=== PATIENT | female | born 1985 | race Native Hawaiian/Other Pacific Islander ===

== ENCOUNTER 2021-09-16 11:36 | Emergency (ER) | payer BC, OTHER ==
[~2021-09-16] VITALS: Ht 167 cm; Wt 69.0 kg
--- NOTE | 2021-09-16 11:56 | ED GI ---
General Chief Complaint: OB < 20 WEEKS Stated Complaint: VOMITING 13 WKS PREG Source of Information: Patient Exam Limitations: No Limitations History of Present Illness Date Seen by Provider: Sep 16, 2021 Time Seen by Provider: 11:39 Initial Comments The patient presents to the ER by private conveyance with her [id number] with chief complaint of nausea vomiting and poor fluid intake over the past 3 days. She has had no fevers chills cough sore throat abdominal pain diarrhea. She does have constipation. She does not take anything for that. She is a G3, P1 at 13 weeks and 0 days based on LMP of June 17 under the care of Dr. Mack. She has had an uneventful other than nausea and vomiting. She has been using diclegis as well as she went to Dr. Mack's office , 4 days ago and picked up some Zofran. She been using that twice a day. She has not had any this morning. She has had at least 10 episodes of emesis in the last 24 hours. No dysuria. History of cholecystectomy. She has been forcing herself to drink Gatorade. Allergies and Home Medications Allergies Coded Allergies: No Known Drug Allergies (Unverified , 09/16/21) Patient Home Medication List Home Medication List Reviewed: Yes Review of Systems Review of Systems Constitutional: No chills, No fever, No malaise; weakness EENTM: No Blurred Vision, No Double Vision Respiratory: Denies Cough, Denies Shortness of Air Cardiovascular: Denies Chest Pain, Denies Lightheadedness Gastrointestinal: Denies Constipated, Denies Diarrhea; Nausea, Poor Fluid Intake, Vomiting Genitourinary: Denies Burning, Denies Discharge Musculoskeletal: No back pain, No joint pain Psychiatric/Neurological: Denies Anxiety, Denies Depressed All Other Systems Reviewed Negative Unless Noted: Yes Past Hvxstcp-Axbnhk-Vexnuz Hx Patient Social History Tobacco Use?: No Use of E-Cig and/or Vaping dev: No Substance use?: No Alcohol Use?: No Physical Exam Vital Signs Vital Signs - First Documented 09/16/21 11:56 Temp 36.3 Pulse 91 Resp 16 B/P (MAP) 138/95 (109) Pulse Ox 96 O2 Delivery Room Air Capillary Refill : Height/Weight/BMI Height: '" Weight: lbs. oz. kg; BMI Method: General Appearance: WD/WN, mild distress HEENT: PERRL/EOMI, TMs normal; No pharynx normal (Dry oral mucosa) Neck: non-tender, full range of motion, supple, normal inspection Respiratory: lungs clear, normal breath sounds, no respiratory distress, no accessory muscle use Cardiovascular: normal peripheral pulses, regular rate, rhythm, no murmur Gastrointestinal: normal bowel sounds, non tender, soft Extremities: normal range of motion, normal capillary refill Neurologic/Psychiatric: alert, normal mood/affect, oriented x 3 Skin: normal color, warm/dry Progress/Results/Core Measures Results/Orders Lab Results Laboratory Tests Test 09/16/21 11:45 09/16/21 11:50 Range/Units Urine Color YELLOW Urine Clarity CLOUDY Urine pH 8.0 5-9 Urine Specific [place] 1.010 L 1.016-1.022 Urine Protein NEGATIVE NEGATIVE Urine Glucose (UA) NEGATIVE NEGATIVE Urine Ketones NEGATIVE NEGATIVE Urine Nitrite NEGATIVE NEGATIVE Urine Bilirubin NEGATIVE NEGATIVE Urine Urobilinogen 1.0 < = 1.0 MG/DL Urine Leukocyte Esterase NEGATIVE NEGATIVE Urine RBC (Auto) NEGATIVE NEGATIVE Urine RBC NONE /HPF Urine WBC RARE /HPF Urine Squamous Epithelial Cells 5-10 /HPF Urine Crystals NONE /LPF Urine Bacteria NEGATIVE /HPF Urine Casts NONE /LPF Urine Mucus NEGATIVE /LPF Urine Culture Indicated NO White Blood Count 12.2 H 4.3-11.0 10^3/uL Red Blood Count 4.34 3.80-5.11 10^6/uL Hemoglobin 13.3 11.5-16.0 g/dL Hematocrit 40 35-52 % Mean Corpuscular Volume 91 80-99 fL Mean Corpuscular Hemoglobin 31 25-34 pg Mean Corpuscular Hemoglobin Concent 34 32-36 g/dL Red Cell Distribution Width 12.8 10.0-14.5 % Platelet Count 339 130-400 10^3/uL Mean Platelet Volume 9.4 9.0-12.2 fL Immature Granulocyte % (Auto) 0 % Neutrophils (%) (Auto) 75 42-75 % Lymphocytes (%) (Auto) 16 12-44 % Monocytes (%) (Auto) 6 0-12 % Eosinophils (%) (Auto) 3 0-10 % Basophils (%) (Auto) 0 0-10 % Neutrophils # (Auto) 9.1 H 1.8-7.8 10^3/uL Lymphocytes # (Auto) 2.0 1.0-4.0 10^3/uL Monocytes # (Auto) 0.7 0.0-1.0 10^3/uL Eosinophils # (Auto) 0.3 0.0-0.3 10^3/uL Basophils # (Auto) 0.0 0.0-0.1 10^3/uL Immature Granulocyte # (Auto) 0.1 0.0-0.1 10^3/uL Sodium Level 138 135-145 MMOL/L Potassium Level 4.0 3.6-5.0 MMOL/L Chloride Level 105 98-107 MMOL/L Carbon Dioxide Level 21 21-32 MMOL/L Anion Gap 12 5-14 MMOL/L Blood Urea Nitrogen 3 L 7-18 MG/DL Creatinine 0.56 L 0.60-1.30 MG/DL Estimat Glomerular Filtration Rate 123 BUN/Creatinine Ratio 5 Glucose Level 78 70-105 MG/DL Calcium Level 8.8 8.5-10.1 MG/DL C-Reactive Protein High Sensitivity 0.83 H 0.00-0.50 MG/DL My Orders Orders - DONAL RODRIGUEZ Ua Culture If Indicated (09/16/21 11:43) Urine Bedside (09/16/21 11:43) Cbc With Automated Diff (09/16/21 11:56) Basic Metabolic Panel (09/16/21 11:56) Hs C Reactive Protein (09/16/21 11:56) Ondansetron Injection (Zofran Injectio (09/16/21 12:00) Ed Iv/Invasive Line Start (09/16/21 12:03) Lactated Ringers (Lr 1000 Ml Iv Solution (09/16/21 12:15) Medications Given in ED Current Medications Medications Dose Ordered Sig/Michelle Route Start Time Stop Time Status Last Admin Dose Admin Lactated Ringer's 1,000 ml @ 0 mls/hr Q0M ONCE IV 09/16/21 12:15 09/16/21 12:16 DC 09/16/21 12:08 1,000 MLS/HR Ondansetron HCl 4 mg ONCE ONCE IVP 09/16/21 12:00 09/16/21 12:01 DC 09/16/21 12:09 4 MG Vital Signs/I&O 09/16/21 11:56 Temp 36.3 Pulse 91 Resp 16 B/P (MAP) 138/95 (109) Pulse Ox 96 O2 Delivery Room Air Progress Progress Note : Time: 12:22 Progress Note After for Sang her nausea is gone. She feels much better. We we will give her a liter of fluids and allow her to go home. She is okay with this plan. Departure Impression Primary Impression: Nausea/vomiting in Disposition: 01 HOME, SELF-CARE Condition: Stable Departure-Patient Inst. Decision time for Depature: 12:23 Referrals: NO,LOCAL PHYSICIAN (PCP) Primary Care Physician GALINA MACK DO Patient Instructions: Nausea and Vomiting of Add. Discharge Instructions: Continue to push fluids. Take rest. Tylenol 1000 mg every 8 hours as necessary for pain. Benadryl 1 to 2 tablets at night as necessary for sleep or for allergic symptoms. All discharge instructions reviewed with patient and/or family. Voiced understanding. Work/School Note: Work Release Form Date Seen in the Emergency Department: Sep 16, 2021 Return to Work: Sep 18, 2021 Restrictions: No Restrictions Copy Copies To 1: GALINA MACK TITUS J Sep 16, 2021 11:56
[2021-09-16] MEDS ORDERED: ONDANSETRON 4 MG/2 ML (SDV) Z0FRAN IVP ONE (12:00)
[2021-09-16 12:01] LABS: BASOPHILS % (AUTO) 0 % (0-10); EOSINOPHILS # (AUTO) 0.3 10^3/uL (0.0-0.3); EOSINOPHILS % (AUTO) 3 % (0-10); HEMATOCRIT 40 % (35-52); HEMOGLOBIN 13.3 g/dL (11.5-16.0); LYMPHOCYTES % (AUTO) 16 % (12-44); MEAN CORPUSCULAR HEMOGLOBIN 31 pg (25-34); MEAN CORPUSCULAR HGB CONC 34 g/dL (32-36); MEAN CORPUSCULAR VOLUME 91 fL (80-99); MEAN PLATELET VOLUME 9.4 fL (9.0-12.2); MONOCYTES # (AUTO) 0.7 10^3/uL (0.0-1.0); MONOCYTES % (AUTO) 6 % (0-12); NEUTROPHILS # (AUTO) 9.1 10^3/uL (1.8-7.8); NEUTROPHILS % (AUTO) 75 % (42-75); PLATELET COUNT 339 10^3/uL (130-400); WHITE BLOOD COUNT 12.2 10^3/uL (4.3-11.0)
[2021-09-16 12:07] LABS: CALCIUM 8.8 MG/DL (8.5-10.1)
[2021-09-16 12:10] LABS: BILIRUBIN,URINE NEGATIVE (NEGATIVE); CLARITY,URINE CLOUDY; COLOR,URINE YELLOW; GLUCOSE, URINE (UA) NEGATIVE (NEGATIVE); KETONES,URINE NEGATIVE (NEGATIVE); LEUKOCYTE ESTERASE ,URINE NEGATIVE (NEGATIVE); NITRITE,URINE NEGATIVE (NEGATIVE); PROTEIN,URINE NEGATIVE (NEGATIVE)
[2021-09-16 12:11] LABS: CREATININE SERUM 0.56 MG/DL (0.60-1.30)
[2021-09-16] MEDS ORDERED: LACTATED RINGERS 1,000 ML IV ONE (12:15)
[2021-09-16 12:16] LABS: BACTERIA,URINE NEGATIVE /HPF; WBC,URINE RARE /HPF
[2021-09-16 12:51] VITALS: BP 130/84
== END 2021-09-16 12:51 | disposition home or self-care (01) ==
LOC: ER 11:41
DX: O21.0 Mild hyperemesis gravidarum (principal); Z3A.13 13 weeks gestation of pregnancy; Z90.49 Acquired absence of other specified parts of digestive tract
CPT/HCPCS: 36415; 80048; 81000; 84703; 85025; 86141

== ENCOUNTER 2021-11-11 20:47 | Emergency (ER) | payer BC ==
[~2021-11-11] VITALS: Ht 167 cm; Wt 69.0 kg
[2021-11-11] MEDS ORDERED: RT-ALBUTEROL HFA 8.5 GM INHALER IH ONE (21:05)
[2021-11-11] MEDS ORDERED: RX-ALBUTEROL INHALER 8.5 GM HFA (PROAIR) IH STA (21:05)
[2021-11-11 21:16] LABS: BASOPHILS % (AUTO) 0 % (0-10); EOSINOPHILS # (AUTO) 0.1 10^3/uL (0.0-0.3); EOSINOPHILS % (AUTO) 1 % (0-10); HEMATOCRIT 34 % (35-52); HEMOGLOBIN 11.4 g/dL (11.5-16.0); LYMPHOCYTES # (AUTO) 1.7 10^3/uL (1.0-4.0); LYMPHOCYTES % (AUTO) 15 % (12-44); MEAN CORPUSCULAR HEMOGLOBIN 31 pg (25-34); MEAN CORPUSCULAR HGB CONC 33 g/dL (32-36); MEAN CORPUSCULAR VOLUME 92 fL (80-99); MEAN PLATELET VOLUME 9.5 fL (9.0-12.2); MONOCYTES # (AUTO) 0.6 10^3/uL (0.0-1.0); MONOCYTES % (AUTO) 5 % (0-12); NEUTROPHILS % (AUTO) 78 % (42-75); PLATELET COUNT 396 10^3/uL (130-400); WHITE BLOOD COUNT 11.6 10^3/uL (4.3-11.0)
[2021-11-11 21:24] LABS: BILIRUBIN,URINE NEGATIVE (NEGATIVE); CLARITY,URINE CLEAR; COLOR,URINE YELLOW; GLUCOSE, URINE (UA) NEGATIVE (NEGATIVE); KETONES,URINE NEGATIVE (NEGATIVE); LEUKOCYTE ESTERASE ,URINE NEGATIVE (NEGATIVE); NITRITE,URINE NEGATIVE (NEGATIVE); PH,URINE 7.5 (5-9); PROTEIN,URINE NEGATIVE (NEGATIVE)
[2021-11-11 21:26] LABS: ALBUMIN 3.3 GM/DL (3.2-4.5); POTASSIUM 3.6 MMOL/L (3.6-5.0)
[2021-11-11 21:29] LABS: FIBRIN DEGRADATION PRODUCTS 0.73 UG/ML (0.00-0.49); INR 0.9 (0.8-1.4); PROTHROMBIN TIME PATIENT 12.4 SEC (12.2-14.7); TOTAL PROTEIN 6.1 GM/DL (6.4-8.2)
[2021-11-11 21:31] LABS: BILIRUBIN,TOTAL 0.3 MG/DL (0.1-1.0)
[2021-11-11 21:33] LABS: CREATININE SERUM 0.61 MG/DL (0.60-1.30)
[2021-11-11 21:43] LABS: AMORPHOUS SEDIMENT,UR RARE AMOR PHOSPHATE /LPF; BACTERIA,URINE NEGATIVE /HPF
--- NOTE | 2021-11-11 21:51 | ED Cough/URI ---
General Chief Complaint: COVID19 Suspect/Confirmed Stated Complaint: TROUBLE BREATHING;DIZZY;FATIGUE Nursing Triage Note: PT AMB TO ER WITH C/O SOB THAT GOT WORSE TODAY. PT TESTED POSITIVE FOR COVID 19 ON 11/01 History of Present Illness Date Seen by Provider: Nov 11, 2021 Time Seen by Provider: 20:55 Initial Comments 36 year old female, 21 weeks gestation. She is on day 10 of COVID, had more SOA today. She had mild nausea today, improved with Diclegis. She was experience hyperemesis gravidarum early in her but it had improved until she had COVID. She has been increasing her fluid intake. She has her ultrasound and appointment with Dr. Mack tomorrow. She is feeling regular movements of the baby. Timing/Duration: intermittent Severity/Quality: mild, productive cough Prior Episodes/Possible Cause: no prior episodes Associated Symptoms: cough, muscle aches, nasal congestion, shortness of breath Allergies and Home Medications Allergies Coded Allergies: No Known Drug Allergies (Unverified , 09/16/21) Patient Home Medication List Home Medication List Reviewed: Yes Review of Systems Review of Systems Constitutional: see HPI, malaise, weakness EENTM: see HPI, no symptoms reported Respiratory: see HPI, cough, short of breath Cardiovascular: no symptoms reported, see HPI Gastrointestinal: see HPI; No abdominal pain, No diarrhea; nausea; No vomiting Expected Date of Delivery: March 24, 2022 All Other Systems Reviewed Negative Unless Noted: Yes Past Zgjxhuk-Rnyyvt-Evjkys Hx Patient Social History Tobacco Use?: No Substance use?: No Alcohol Use?: No Pt feels they are or have been: No Immunizations Up To Date Influenza Vaccine Up-to-Date: Yes; Up-to-Date Past Medical History Expected Date of Delivery: March 24, 2022 Hx : 2 Hx Para: 1 Hx Total # of Abortions (Sp): 0 Family Medical History Reviewed Nursing Family Hx Physical Exam Vital Signs - First Documented 11/11/21 20:55 Temp 36.5 Pulse 80 Resp 20 B/P (MAP) 116/83 (94) Pulse Ox 99 O2 Delivery Room Air Capillary Refill : Height: '" Weight: lbs. oz. kg; 24.00 BMI Method: General Appearance: WD/WN, no apparent distress HEENT: PERRL/EOMI, normal ENT inspection, TMs normal, pharynx normal Neck: non-tender, full range of motion, supple, normal inspection Respiratory: chest non-tender, lungs clear, normal breath sounds, no respiratory distress Cardiovascular: normal peripheral pulses, regular rate, rhythm, no edema, no murmur Gastrointestinal: normal bowel sounds, non tender, soft, distended (Compatible with 21 weeks gestation) Extremities: normal range of motion, non-tender, normal inspection, no calf tenderness, normal capillary refill Neurologic/Psychiatric: no motor/sensory deficits, alert, normal mood/affect, oriented x 3 Skin: normal color, warm/dry Progress/Results/Core Measures Suspected Sepsis SIRS Temperature: Pulse: 80 Respiratory Rate: 20 Laboratory Tests 11/11/21 21:00: White Blood Count 11.6H Blood Pressure 116 /83 Mean: 94 Laboratory Tests 11/11/21 21:00: Creatinine 0.61, INR Comment 0.9, Platelet Count 396, Total Bilirubin 0.3 Results/Orders Lab Results Laboratory Tests Test 11/11/21 20:54 11/11/21 20:56 11/11/21 21:00 Range/Units Influenza Type A (RT-PCR) Not Detected Not Detecte Influenza Type B (RT-PCR) Not Detected Not Detecte Urine Color YELLOW Urine Clarity CLEAR Urine pH 7.5 5-9 Urine Specific [place] <=1.005 1.016-1.022 Urine Protein NEGATIVE NEGATIVE Urine Glucose (UA) NEGATIVE NEGATIVE Urine Ketones NEGATIVE NEGATIVE Urine Nitrite NEGATIVE NEGATIVE Urine Bilirubin NEGATIVE NEGATIVE Urine Urobilinogen 0.2 < = 1.0 MG/DL Urine Leukocyte Esterase NEGATIVE NEGATIVE Urine RBC (Auto) NEGATIVE NEGATIVE Urine RBC NONE /HPF Urine WBC NONE /HPF Urine Crystals PRESENT H /LPF Urine Amorphous Sediment RARE MARTHA PHOSPHATE H /LPF Urine Bacteria NEGATIVE /HPF Urine Casts NONE /LPF Urine Mucus NEGATIVE /LPF Urine Culture Indicated NO White Blood Count 11.6 H 4.3-11.0 10^3/uL Red Blood Count 3.71 L 3.80-5.11 10^6/uL Hemoglobin 11.4 L 11.5-16.0 g/dL Hematocrit 34 L 35-52 % Mean Corpuscular Volume 92 80-99 fL Mean Corpuscular Hemoglobin 31 25-34 pg Mean Corpuscular Hemoglobin Concent 33 32-36 g/dL Red Cell Distribution Width 13.2 10.0-14.5 % Platelet Count 396 130-400 10^3/uL Mean Platelet Volume 9.5 9.0-12.2 fL Immature Granulocyte % (Auto) 1 % Neutrophils (%) (Auto) 78 H 42-75 % Lymphocytes (%) (Auto) 15 12-44 % Monocytes (%) (Auto) 5 0-12 % Eosinophils (%) (Auto) 1 0-10 % Basophils (%) (Auto) 0 0-10 % Neutrophils # (Auto) 9.0 H 1.8-7.8 10^3/uL Lymphocytes # (Auto) 1.7 1.0-4.0 10^3/uL Monocytes # (Auto) 0.6 0.0-1.0 10^3/uL Eosinophils # (Auto) 0.1 0.0-0.3 10^3/uL Basophils # (Auto) 0.0 0.0-0.1 10^3/uL Immature Granulocyte # (Auto) 0.1 0.0-0.1 10^3/uL Prothrombin Time 12.4 12.2-14.7 SEC INR Comment 0.9 0.8-1.4 Activated Partial Thromboplast Time 29 24-35 SEC D-Dimer 0.73 H 0.00-0.49 UG/ML Sodium Level 138 135-145 MMOL/L Potassium Level 3.6 3.6-5.0 MMOL/L Chloride Level 106 98-107 MMOL/L Carbon Dioxide Level 21 21-32 MMOL/L Anion Gap 11 5-14 MMOL/L Blood Urea Nitrogen 4 L 7-18 MG/DL Creatinine 0.61 0.60-1.30 MG/DL Estimat Glomerular Filtration Rate 119 BUN/Creatinine Ratio 7 Glucose Level 106 H 70-105 MG/DL Calcium Level 9.0 8.5-10.1 MG/DL Corrected Calcium 9.6 8.5-10.1 MG/DL Total Bilirubin 0.3 0.1-1.0 MG/DL Aspartate Amino Transf (AST/SGOT) 16 5-34 U/L Alanine Aminotransferase (ALT/SGPT) 31 0-55 U/L Alkaline Phosphatase 51 40-136 U/L Lactate Dehydrogenase 162 125-220 U/L C-Reactive Protein High Sensitivity 1.19 H 0.00-0.50 MG/DL Total Protein 6.1 L 6.4-8.2 GM/DL Albumin 3.3 3.2-4.5 GM/DL Procalcitonin 0.03 <0.10 NG/ML My Orders Orders - SMITH REZA Cbc With Automated Diff (11/11/21 21:01) Comprehensive Metabolic Panel (11/11/21 21:01) Fibrin Degradation Products (11/11/21 21:01) Procalcitonin (Pct) (11/11/21 21:01) Protime With Inr (11/11/21 21:01) Partial Thromboplastin Time (11/11/21 21:01) Ua Culture If Indicated (11/11/21 21:01) Hs C Reactive Protein (11/11/21 21:01) LDH (11/11/21 21:01) Rx-Albuterol Inhaler (Rx-Ventolin Hfa In (11/11/21 21:05) Covid-19 External Lab Results (11/11/21 21:18) Chest 1 View, Ap/Pa Only (11/11/21 21:48) Influenza A And B By Pcr (11/11/21 20:54) Vital Signs/I&O 11/11/21 20:55 Temp 36.5 Pulse 80 Resp 20 B/P (MAP) 116/83 (94) Pulse Ox 99 O2 Delivery Room Air Capillary Refill : Blood Pressure Mean: 94 Progress Note : Time: 20:55 Progress Note Patient seen and evaluated, will obtain labs and chest x-ray, with shielding for the . ProAir inhaler 2 puffs for shortness of air. She is taking water. 0 improvement after ProAir HFA. Labs show no significant abnormalities. Discussed assessment with Dr. Pelaez and reviewed labs, in agreement with treatment plan 2199 discharge instructions and return precautions reviewed. All questions answered. Diagnostic Imaging Diagonstic Imaging: Xray Plain Films/CT/US/NM/MRI: chest Comments NAME: DYLAN TRAVIS [facility] REC#: [id number] PT STATUS: REG ER : 1985 PHYSICIAN: SMITH REZA ADMIT DATE: 11/11/21/ER Draft Date of Exam:11/11/21 CHEST 1 VIEW, AP/PA ONLY INDICATION: Cough. COMPARISON: None available. TECHNIQUE: Single frontal radiograph of the chest dated November 11, 2021. FINDINGS: The cardiac silhouette and pulmonary vasculature are within normal limits. The lungs are clear. No pleural effusion. No pneumothorax. No acute osseous abnormality. IMPRESSION: No acute cardiopulmonary abnormality. Dictated on workstation # [id number] Dict: 11/11/212225 Trans: 11/11/212227 [facility] [id number] Interpreted by: KALYANI HINSE MD Electronically signed by: Reviewed: Reviewed by Me Departure Impression Primary Impression: COVID-19 Additional Impression: 21 weeks gestation of Disposition: HOME, SELF-CARE Condition: Stable Departure-Patient Inst. Decision time for Depature: 22:00 Referrals: NO,LOCAL PHYSICIAN (PCP) Primary Care Physician GALINA MACK DO Patient Instructions: COVID-19 and (DC) Add. Discharge Instructions: Continue taking your vitamin daily. Increase water intake, 16 ounces every 2 hours while awake. Walk for 5 to 10 minutes every hour while awake and take deep breaths. Call your primary care provider or OB doctor, if your symptoms are not improving or worsen. Use the inhaler, 2 puffs every 4-6 hours, as needed for shortness of breath. Tylenol 650 mg every 6-8 hours, as needed for fever or pain. Return to emergency department for new, urgent healthcare needs. Keep your scheduled appointment tomorrow with Dr. Mack. All discharge instructions reviewed with patient and/or family. Voiced understanding. Copy Copies To 1: GALINA MACK AMY ARNP Nov 11, 2021 21:51
--- NOTE | 2021-11-11 22:28 | Diagnostic Imaging Report ---
INDICATION: Cough. COMPARISON: None available. TECHNIQUE: Single frontal radiograph of the chest dated November 11, 2021. FINDINGS: The cardiac silhouette and pulmonary vasculature are within normal limits. The lungs are clear. No pleural effusion. No pneumothorax. No acute osseous abnormality. IMPRESSION: No acute cardiopulmonary abnormality. Dictated by: Dictated on workstation # [id number]
[2021-11-11 22:34] VITALS: BP 112/72
== END 2021-11-11 22:34 | disposition home or self-care (01) ==
LOC: EDUNIT# 20:47 → ER 20:50
DX: O98.512 Other viral diseases complicating pregnancy, second trimester (principal); U07.1 COVID-19; Z3A.21 21 weeks gestation of pregnancy
CPT/HCPCS: 36415; 71045; 80053; 81000; 83615; 84145; 85025; 85379; 85610; 85730; 86141; 87636

== ENCOUNTER → 2021-11-12 | Outpatient (CLI) | payer BC ==
--- NOTE | 2021-11-12 13:59 | Diagnostic Imaging Report ---
INDICATION: survey. TECHNIQUE: Multiple real-time grayscale images were obtained over the gravid uterus. COMPARISON: None. FINDINGS: There is a single live fetus in a breech presentation. heart rate was recorded at 143 BPM. Placenta is anterior. No previa is identified. Amniotic fluid volume is normal. Cervical length is 5.3 cm. survey demonstrates kidneys, bladder and stomach to be unremarkable. brain is unremarkable. There is a four-chamber heart. There is a three-vessel cord with normal insertion. spine is unremarkable. Biometrical measurements are as follows: Biparietal 5.16 cm, age 21 weeks 5 days. Head circumference 18.99 cm, age 21 weeks 2 days. Abdominal circumference 15.99 cm, age 21 weeks 1 days. Femur length 3.51 cm, age 21 weeks 1 days. Sonographic estimate age: 21 weeks 3 days. Sonographic estimated date of delivery: 03/22/2022. Estimated Weight: 401 gm (+/- 59 gm). LMP percentile: 44%. heart rate: 143 beats per minute. number: 1 of 1. IMPRESSION: Single live IUP at 21 weeks 3 days gestational age. Estimated date of confinement sonographically is 03/22/2022. Dictated by: Dictated on workstation # [id number]
== END ==
LOC: RAD 12:00
PROVIDERS: ATTEND Nurse Practitioner Women's Health
DX: Z34.02 Encounter for supervision of normal first pregnancy, second trimester (principal); Z3A.21 21 weeks gestation of pregnancy
CPT/HCPCS: 76805

== ENCOUNTER 2022-01-28 13:51 | Outpatient (CLI) | payer BC ==
[~2022-01-28] VITALS: Ht 167.7 cm; Wt 82.2 kg
[2022-01-28 13:46] VITALS: BP 122/76
[2022-01-28 14:14] LABS: BILIRUBIN,URINE NEGATIVE (NEGATIVE); CLARITY,URINE CLEAR; COLOR,URINE YELLOW; GLUCOSE, URINE (UA) NEGATIVE (NEGATIVE); KETONES,URINE NEGATIVE (NEGATIVE); LEUKOCYTE ESTERASE ,URINE NEGATIVE (NEGATIVE); NITRITE,URINE NEGATIVE (NEGATIVE); PH,URINE 6.5 (5-9); PROTEIN,URINE NEGATIVE (NEGATIVE)
[2022-01-28 14:28] LABS: BACTERIA,URINE NEGATIVE /HPF; SQUAMOUS EPITHELIAL CELL,UR 0-2 /HPF
[2022-01-28] MEDS ORDERED: PREN-8 PO (14:40)
[2022-01-28] MEDS ORDERED: FAMO20TA3 PO (14:40)
--- NOTE | 2022-01-29 08:41 | Physician Query-Final Dx ---
COMFORT,01/29/22 0841: Clinic Account Progress/Dx Physician Query: Please give diagnosis Please include # weeks gestation Date of Service Jan 28, 2022 at 13:51 EUGENE DE LOS SANTOS DO 01/30/22 0703: Clinic Account Progress/Dx DIAGNOSIS: Diagnosis 32 week IUP Irregular contractions COMFORT,OctJan 29, 2022 08:41 EUGENE DE LOS SANTOS DO Jan 30, 2022 07:03
== END 2022-01-28 14:54 | disposition home or self-care (01) ==
LOC: WSo 13:51 → LDRP 13:51 → WSo 14:54
PROVIDERS: ATTEND Obstetrics & Gynecology
DX: Z34.90 Encounter for supervision of normal pregnancy, unspecified, unspecified trimester (principal); Z3A.00 Weeks of gestation of pregnancy not specified
CPT/HCPCS: 81000; 84112; 99213

== ENCOUNTER → 2022-02-27 | Outpatient (CLI) | payer BC ==
[~2022-02-27] MED LIST: FAMO20TA3 PO; PREN-8 PO
== END ==
LOC: LABNPT 15:22
PROVIDERS: ATTEND Obstetrics & Gynecology
DX: Z36.85 Encounter for antenatal screening for Streptococcus B (principal)
CPT/HCPCS: 87081

== ENCOUNTER 2022-03-03 14:01 | Outpatient (CLI) | payer BC ==
[~2022-03-03] VITALS: Ht 167.7 cm; Wt 87.5 kg
[2022-03-03 14:31] VITALS: BP 129/84
[2022-03-03 14:43] LABS: BILIRUBIN,URINE NEGATIVE (NEGATIVE); CLARITY,URINE CLEAR; COLOR,URINE YELLOW; GLUCOSE, URINE (UA) NEGATIVE (NEGATIVE); KETONES,URINE NEGATIVE (NEGATIVE); LEUKOCYTE ESTERASE ,URINE NEGATIVE (NEGATIVE); NITRITE,URINE NEGATIVE (NEGATIVE); PH,URINE 6.5 (5-9); PROTEIN,URINE NEGATIVE (NEGATIVE)
[2022-03-03 14:52] LABS: BACTERIA,URINE TRACE /HPF
--- NOTE | 2022-03-04 08:33 | Physician Query-Final Dx ---
Clinic Account Progress/Dx Physician Query: Please give diagnosis Please include # weeks gestation Date of Service March 03, 2022 at 14:01 ,OctMarch 04, 2022 08:33
== END 2022-03-03 15:55 ==
LOC: LDRP 14:01 → WSo 14:01
PROVIDERS: ATTEND Obstetrics & Gynecology
DX: O62.9 Abnormality of forces of labor, unspecified (principal); Z3A.37 37 weeks gestation of pregnancy
CPT/HCPCS: 81000; 99213

== ENCOUNTER 2022-03-05 12:48 | Inpatient (IN) | payer BC ==
[~2022-03-05] VITALS: Ht 167.7 cm; Wt 88.6 kg
[2022-03-05] VITALS (9 sets, daily range): BP systolic 122–155; BP diastolic 78–103
[2022-03-05 14:05] LABS: BILIRUBIN,URINE NEGATIVE (NEGATIVE); CLARITY,URINE CLEAR; COLOR,URINE YELLOW; GLUCOSE, URINE (UA) TRACE (NEGATIVE); KETONES,URINE NEGATIVE (NEGATIVE); LEUKOCYTE ESTERASE ,URINE NEGATIVE (NEGATIVE); NITRITE,URINE NEGATIVE (NEGATIVE); PH,URINE 6.5 (5-9); PROTEIN,URINE NEGATIVE (NEGATIVE)
[2022-03-05 14:16] LABS: BACTERIA,URINE NEGATIVE /HPF
[2022-03-05] MEDS ORDERED: D5 LR IV SOLUTION 1,000 ML IV ONE (17:56)
[2022-03-05] MEDS: D5 LR IV SOLUTION 1,000 ML IV SCH ×2 (18:10→22:10)
[2022-03-05 18:23] LABS: BASOPHILS # (AUTO) 0.1 10^3/uL (0.0-0.1); BASOPHILS % (AUTO) 0 % (0-10); EOSINOPHILS # (AUTO) 0.5 10^3/uL (0.0-0.3); EOSINOPHILS % (AUTO) 3 % (0-10); HEMATOCRIT 32 % (35-52); HEMOGLOBIN 10.1 g/dL (11.5-16.0); LYMPHOCYTES # (AUTO) 1.9 10^3/uL (1.0-4.0); LYMPHOCYTES % (AUTO) 12 % (12-44); MEAN CORPUSCULAR HEMOGLOBIN 28 pg (25-34); MEAN CORPUSCULAR HGB CONC 32 g/dL (32-36); MEAN CORPUSCULAR VOLUME 89 fL (80-99); MEAN PLATELET VOLUME 9.6 fL (9.0-12.2); MONOCYTES % (AUTO) 7 % (0-12); NEUTROPHILS # (AUTO) 11.6 10^3/uL (1.8-7.8); NEUTROPHILS % (AUTO) 77 % (42-75); PLATELET COUNT 335 10^3/uL (130-400); WHITE BLOOD COUNT 15.2 10^3/uL (4.3-11.0)
[2022-03-05 18:57] LABS: EOSINOPHILS % (MANUAL) 2 %; LYMPHOCYTES % (MANUAL) 12 %; MONOCYTES % (MANUAL) 3 %; NEUTROPHILS % (MANUAL) 83 %; RBC MORPH NORMAL
[2022-03-05] MEDS ORDERED: ACETAMINOPHEN 500 MG TAB (TYLENOL) PO PRN (19:00)
[2022-03-05] MEDS ORDERED: CALCIUM CARBONATE 500 MG (TUMS) TAB.CHEW PO PRN (19:00)
[2022-03-05 19:35] LABS: URINE CREATININE FOR RATIO 33 MG/DL (30-125)
[2022-03-05 19:36] LABS: URINE PROTEIN FOR RATIO ONLY < 6 MG/DL (6-12)
[2022-03-05] MEDS ORDERED: diphenhydrAMINE 25 MG TAB (BENADRYL) PO ONE ×2 (21:00→21:04)
[2022-03-06] VITALS (55 sets, daily range): BP systolic 100–150; BP diastolic 54–99
[2022-03-06] MEDS: D5 LR IV SOLUTION 1,000 ML IV SCH ×2 (02:29→08:24)
--- NOTE | 2022-03-06 08:29 | History & Physical ---
History and Physical Date Seen by Provider: March 06, 2022 Time Seen by Provider: 07:30 This patient is a 37-year-old 1 female admitted at 39+ weeks gestation for induction of labor. Her has been uncomplicated however her GBS culture was positive. She denies rupture membranes or bleeding she has had no problems with this Allergies are none Medications are vitamins Medical social and surgical history is all per the antepartum record HEENT exam is normal Neck is supple with no lymphadenopathy no thyromegaly Abdomen is gravid soft nontender nondistended Extremities show no clubbing cyanosis. There is no Homans' sign. Pelvic exam shows a cervix 1 to 2 cm dilated 50 to 60% effaced -1 station soft mid to slightly anterior with a vertex presentation Amniotomy is performed with clear fluid Laboratory Tests Test 03/05/22 13:00 03/05/22 18:10 Range/Units Urine Color YELLOW Urine Clarity CLEAR Urine pH 6.5 5-9 Urine Specific [place] <=1.005 1.016-1.022 Urine Protein < 6 L 6-12 MG/DL Urine Glucose (UA) TRACE H NEGATIVE Urine Ketones NEGATIVE NEGATIVE Urine Nitrite NEGATIVE NEGATIVE Urine Bilirubin NEGATIVE NEGATIVE Urine Urobilinogen 0.2 < = 1.0 MG/DL Urine Leukocyte Esterase NEGATIVE NEGATIVE Urine RBC (Auto) 3+ H NEGATIVE Urine RBC 10-25 H /HPF Urine WBC NONE /HPF Urine Squamous Epithelial Cells 2-5 /HPF Urine Crystals NONE /LPF Urine Bacteria NEGATIVE /HPF Urine Casts NONE /LPF Urine Mucus NEGATIVE /LPF Urine Culture Indicated NO Urine Creatinine 33 30-125 MG/DL Urine Protein/Creatinine Ratio White Blood Count 15.2 H 4.3-11.0 10^3/uL Red Blood Count 3.56 L 3.80-5.11 10^6/uL Hemoglobin 10.1 L 11.5-16.0 g/dL Hematocrit 32 L 35-52 % Mean Corpuscular Volume 89 80-99 fL Mean Corpuscular Hemoglobin 28 25-34 pg Mean Corpuscular Hemoglobin Concent 32 32-36 g/dL Red Cell Distribution Width 14.6 H 10.0-14.5 % Platelet Count 335 130-400 10^3/uL Mean Platelet Volume 9.6 9.0-12.2 fL Immature Granulocyte % (Auto) 1 % Neutrophils (%) (Auto) 77 H 42-75 % Lymphocytes (%) (Auto) 12 12-44 % Monocytes (%) (Auto) 7 0-12 % Eosinophils (%) (Auto) 3 0-10 % Basophils (%) (Auto) 0 0-10 % Neutrophils # (Auto) 11.6 H 1.8-7.8 10^3/uL Lymphocytes # (Auto) 1.9 1.0-4.0 10^3/uL Monocytes # (Auto) 1.0 0.0-1.0 10^3/uL Eosinophils # (Auto) 0.5 H 0.0-0.3 10^3/uL Basophils # (Auto) 0.1 0.0-0.1 10^3/uL Immature Granulocyte # (Auto) 0.1 0.0-0.1 10^3/uL Neutrophils % (Manual) 83 % Lymphocytes % (Manual) 12 % Monocytes % (Manual) 3 % Eosinophils % (Manual) 2 % Blood Morphology Comment NORMAL Assessment and plan 39+ week with a positive GBS culture. Patient is admitted now for an elective induction of labor under the protection of ampicillin for GBS. We anticipate a vaginal delivery. 39 weeks admitted for induction of labor Allergies and Home Medications Allergies Coded Allergies: No Known Drug Allergies (Unverified , 09/16/21) Patient Home Medication List Home Medication List Reviewed: Yes Famotidine (Acid Curator Of Collections (FAMOTIDINE)) 20 Mg Tablet, 20 MG PO BID, (Reported) Entered as Reported by: ARPIT BRICEÑO on 01/28/221439 Vit W-Ca,Fe,FA(<1 mg) ( Formula) 1 Each Tablet, 1 EACH PO, (Reported) Entered as Reported by: ARPIT BRICEÑO on 01/28/221439 KOFI SESAY MD March 06, 2022 8:29 am
[2022-03-06] MEDS ORDERED: OXYTOCIN PRE-MIX DRIP 500 ML IV SCH ×3 (08:30→15:00)
[2022-03-06] MEDS ORDERED: D5 LR IV SOLUTION 1,000 ML IV SCH ×2 (08:30→08:45)
[2022-03-06] MEDS ORDERED: AMPICILLIN FOR IV USE 2,000 MG in WATER (STERILE) FOR INJECTION 14.8 ML IV ONE (08:30)
[2022-03-06] MEDS ORDERED: LIDOCAINE/EPI 2% 1:200,00 (XYLOCAINE) 20 ML VIAL INJ PRN (08:45)
[2022-03-06] MEDS ORDERED: fentaNYL 2 mcg/ml BUPIVA 0.125 100 ML ONE (08:50)
[2022-03-06] MEDS ORDERED: LACTATED RINGERS 1,000 ML IV ONE (08:51)
[2022-03-06] MEDS ORDERED: DOXY25TA56 PO (09:18)
[2022-03-06] MEDS ORDERED: BUPIVACAINE 0.25% 10 ML (SENSORCAINE) VIAL ONE (09:49)
[2022-03-06] MEDS ORDERED: fentaNYL INJ 100 MCG/2 ML AMP ONE (09:49)
[2022-03-06] MEDS ORDERED: ONDANSETRON 4 MG/2 ML (SDV) Z0FRAN ONE (10:14)
[2022-03-06] MEDS: ONDANSETRON 4 MG/2 ML (SDV) Z0FRAN IV PRN ×2 (10:17→15:56)
[2022-03-06] MEDS ORDERED: diphenhydrAMINE 50 MG/ML INJ (BENADRYL) IV PRN (10:45)
[2022-03-06] MEDS ORDERED: EPIDURAL (fentaNYL 2 MCG/ML BUPIVA 0.125%)100 ML BAG EPI PRN (10:45)
[2022-03-06] MEDS ORDERED: NALOXONE 0.4 MG/ML 1 ML (NARCAN) VIAL IV PRN ×3 (10:45→15:00)
[2022-03-06] MEDS ORDERED: LACTATED RINGERS 1,000 ML IV SCH (10:45)
[2022-03-06] MEDS ORDERED: AMPICILLIN FOR IV USE 1,000 MG in WATER (STERILE) FOR INJECTION 7.4 ML IV SCH (12:30)
[2022-03-06] MEDS ORDERED: LIDOCAINE/EPI 2% 1:200,00 (XYLOCAINE) 10 ML VIAL ONE (13:59)
[2022-03-06] MEDS ORDERED: CATHETER FLUSH 10 ML SYR IV SCH ×2 (14:00→22:00)
--- NOTE | 2022-03-06 14:50 | OB Labor & Delivery Record ---
L&D History Date of Service Date of Service: March 06, 2022 History Expected Date of Delivery: March 24, 2022 Gestational Age in Weeks: 37 Hx : 3 Hx Para: 1 Complications Events: Routine care Operative Indications (Cesarea: N/A-Vaginal Delivery Intrapartal Events: None L&D Stage1 Stage One Onset of Labor - Date: March 06, 2022 Monitors and Tracing Monitor Mode: External Heart Rate: 135 Monitor Accelerations: Uniform Monitor Decelerations: None Station: -2 Intermediate Variability: Average (6-10) Short Term Variability: Present Presentation: Vertex Vital Signs VS - Last 72 Hours, by Label 03/05/22 03/05/22 03/05/22 03/05/22 13:26 18:15 18:45 19:05 Temp 37.0 Pulse 106 96 96 Resp 20 18 B/P (MAP) 145/103 (117) 155/87 (109) 139/99 (112) Pulse Ox 99 O2 Delivery Room Air 03/05/22 03/05/22 03/05/22 03/05/22 19:10 19:20 20:10 22:10 Temp 37.0 36.6 Pulse 97 93 92 83 Resp 18 18 18 16 B/P (MAP) 143/88 (106) 139/90 (106) 122/78 (93) 132/80 (97) O2 Delivery Room Air Room Air Room Air Room Air 03/05/22 03/06/22 03/06/22 03/06/22 23:10 00:10 01:20 02:20 Temp 36.8 Pulse 84 88 86 78 Resp 18 18 16 16 B/P (MAP) 137/81 (99) 141/87 (105) 118/73 (88) 141/86 (104) O2 Delivery Room Air Room Air Room Air Room Air 03/06/22 03/06/22 03/06/22 03/06/22 03:20 04:20 05:20 06:36 Temp 36.8 Pulse 91 83 85 92 Resp 16 16 16 18 B/P (MAP) 140/99 (113) 142/83 (102) 124/80 (95) 146/96 (113) O2 Delivery Room Air Room Air Room Air Room Air 03/06/22 03/06/22 03/06/22 03/06/22 07:17 07:40 08:16 09:00 Temp 37.2 Pulse 93 96 93 88 Resp 18 18 18 18 B/P (MAP) 124/78 (93) 134/92 (106) 134/90 (105) 140/93 (109) O2 Delivery Room Air Room Air Room Air Room Air 03/06/22 03/06/22 03/06/22 03/06/22 09:15 09:30 09:45 09:57 Pulse 82 83 82 84 Resp 18 18 18 18 B/P (MAP) 123/69 (87) 133/93 (106) 132/92 (105) 150/96 (114) Pulse Ox 97 O2 Delivery Room Air Room Air Room Air Room Air 03/06/22 03/06/22 03/06/22 03/06/22 10:01 10:07 10:12 10:15 Pulse 85 92 78 64 Resp 18 18 18 18 B/P (MAP) 135/84 (101) 138/67 (90) 125/59 (81) 100/54 (69) Pulse Ox 96 97 97 O2 Delivery Room Air Room Air Room Air Room Air 03/06/22 03/06/22 03/06/22 03/06/22 10:16 10:17 10:20 10:21 Pulse 68 69 69 93 Resp 18 18 18 18 B/P (MAP) 100/59 (73) 108/60 (76) 117/71 (86) 126/72 (90) Pulse Ox 93 O2 Delivery Room Air Room Air Room Air Room Air 03/06/22 03/06/22 03/06/22 03/06/22 10:26 10:31 10:37 10:56 Pulse 100 114 91 85 Resp 18 18 18 18 B/P (MAP) 124/69 (87) 115/62 (79) 116/62 (80) 121/74 (90) Pulse Ox 96 95 95 92 O2 Delivery Room Air Room Air Room Air Room Air 03/06/22 03/06/22 11:11 11:26 Pulse 92 100 Resp 18 18 B/P (MAP) 114/72 (86) 138/82 (100) Pulse Ox 99 97 O2 Delivery Room Air Room Air Rupture of Membranes Spontaneous Ruture of Membrane: No Amniotic Membrane Rupture Time: 0830 Amniotic Membrane Fluid Desc.: Clear Vaginal Bleeding Description: Normal Show Induction/Anesthesia Epidural Cath Placement - Time: 1000 Progress/Notes Patient admitted for early labor, advanced cervical dilatation. She had AROM performed this AM. Augmented with pitocin and progressed to complete and + 3 station, with epidural in place. L&D Stage2 Stage Two Stage II Date: March 06, 2022 Monitors and Tracing Monitor Mode: External Heart Rate: 135 Monitor Accelerations: Uniform Monitor Decelerations: None Fitting Room Associate Variability: Average (6-10) Short Term Variability: Present Position: Right Occiput Anterior Presentation: Vertex Cord Descript/Complications Cord Vessel Description: 3 Vessels Complications tight nuchal cord delivered through. Delivery Type Delivery Method: Spontaneous Vaginal Anterior Shoulder: Right Episiotomy/Perineal Laceration Laceraction(s)/Extensions: Yes Episiotomy Description: Midline, Perineal Extension/lac, 1st degree Degree (describe repair) laceration repaired using 3-0 rapide vicryl suture in usual fashion. Condition of Infant Delivery 1 minute Comment: 8 5 minute Comment: 9 Notes Live male infant weight 7lbs 1 oz Condition of Condition of : Living Exam: No Observed Abnormalities Resuscitation Resuscitation: N/A - Spontaneous Resp L&D Stage3 Stage Three Stage III Date: March 06, 2022 Pictocin Pitocin Administration mu/min: 4 Pitocin ml/hr: 4 Pitocin Administration Comment: 30 mu wide open after delivery of placenta Placenta Delivery Placenta Delivery: Spontaneous Delivery Summary Summary Estimated blood loss (mL): 250 Attending at delivery: Eugene De Los Santos DO Condition of Delivery Examined: Cervix Examined, Uterus Explored Post Hemorrhage: No Condition of Mother stable Condition of (s) stable EUGENE DE LOS SANTOS DO March 06, 2022 14:50
[2022-03-06] MEDS ORDERED: METHYLERGONOVINE 0.2 MG/ML (METHERGINE) AMP ONE (14:56)
[2022-03-06] MEDS ORDERED: DIBUCAINE 1% OINTMENT 30 GM TUBE TOP PRN (15:00)
[2022-03-06] MEDS ORDERED: MEASLES,MUMPS,RUBELLA 1 EA INJ SQ ONE (15:00)
[2022-03-06] MEDS ORDERED: TETANUS,DIPTH,PERTUSS P/F (BOOSTRIX) 0.5 ML VIAL IM ONE (15:00)
[2022-03-06] MEDS ORDERED: BENZOCAINE/MENTHOL (DERMOPLAST) 56 ML CAN TP PRN (15:00)
[2022-03-06] MEDS ORDERED: WITCH HAZEL(TUCKS) 40 EA JAR TOP PRN (15:00)
[2022-03-06] MEDS: METOCLOPRAMIDE INJ 10 MG/2 ML (REGLAN) IV PRN ×2 (16:20→19:47)
[2022-03-06] MEDS: IBUPROFEN 600 MG (MOTRIN) TAB PO SCH (20:39)
[2022-03-06] MEDS: DOCUSATE SODIUM 100 MG (COLACE) CAP PO SCH (21:45)
[2022-03-06] MEDS: HYDROcodone/APAP 5 MG/325 MG (LORTAB) TAB PO PRN (21:46)
[2022-03-07] MEDS: IBUPROFEN 600 MG (MOTRIN) TAB PO SCH ×4 (02:11→20:48)
[2022-03-07 04:00] VITALS: BP 120/68
[2022-03-07] MEDS: HYDROcodone/APAP 5 MG/325 MG (LORTAB) TAB PO PRN ×3 (05:36→17:50)
[2022-03-07 05:46] LABS: BASOPHILS # (AUTO) 0.1 10^3/uL (0.0-0.1); BASOPHILS % (AUTO) 0 % (0-10); EOSINOPHILS # (AUTO) 0.5 10^3/uL (0.0-0.3); EOSINOPHILS % (AUTO) 3 % (0-10); HEMATOCRIT 27 % (35-52); HEMOGLOBIN 8.7 g/dL (11.5-16.0); LYMPHOCYTES % (AUTO) 13 % (12-44); MEAN CORPUSCULAR HEMOGLOBIN 29 pg (25-34); MEAN CORPUSCULAR HGB CONC 32 g/dL (32-36); MEAN CORPUSCULAR VOLUME 90 fL (80-99); MEAN PLATELET VOLUME 9.6 fL (9.0-12.2); MONOCYTES # (AUTO) 1.3 10^3/uL (0.0-1.0); MONOCYTES % (AUTO) 9 % (0-12); NEUTROPHILS # (AUTO) 11.5 10^3/uL (1.8-7.8); NEUTROPHILS % (AUTO) 74 % (42-75); PLATELET COUNT 261 10^3/uL (130-400); WHITE BLOOD COUNT 15.4 10^3/uL (4.3-11.0)
[2022-03-07] MEDS ORDERED: ONDANSETRON 4 MG (ZOFRAN) ORAL DISSOLVE TAB ONE (07:58)
[2022-03-07] MEDS ORDERED: ONDANSETRON 4 MG (ZOFRAN) ORAL DISSOLVE TAB PO PRN (08:00)
--- NOTE | 2022-03-07 08:38 | Discharge Inst-Women's Service ---
Discharge Inst-Women's Serv Depart Medication/Instructions New, Converted or Re-Newed RX: Transmitted to Pharmacy Final Diagnosis PPD 1 NVD Problems Reviewed?: Yes Consults/Follow Up Additional Follow Up: Yes Orders/Referrals Dr. De Los Santos in 6 weeks Activity Activity: Activity as Tolerated Driving Instructions: No Driving for 1 Week NO SMOKING: NO SMOKING Nothing Inside Vagina: No Douching, No [employer], No Tampons Diet Discharge Diet: No Restrictions Symptoms to Report to : Bleeding Excessive, Pain Increased, Fever Over 101 Degrees F, Vaginal Bleeding Increase, Questions/Concerns For Any Problems or Questions: Contact Your Physician Skin/Wound Care Infection Signs and Symptoms: Increased Redness, Foul Odor of Wound, Increased Drainage, Skin Itchy or Has a Rash, Increased Swelling, Temperature Above 101 F Operative Area Clean and Dry: Keep Incision Clean/Dry EUGENE DE LOS SANTOS DO March 07, 2022 08:38
[2022-03-07] MEDS ORDERED: BENZ78AE5 TP (08:39)
[2022-03-07] MEDS ORDERED: IBUP-844 PO (08:39)
[2022-03-07] MEDS ORDERED: FERR325T24 PO (08:39)
[2022-03-07] MEDS ORDERED: DOCU100C37 PO (08:39)
[2022-03-07] MEDS ORDERED: ACHD5005 PO (08:39)
[2022-03-07] MEDS ORDERED: DIBU30OI TOP (08:39)
[2022-03-07] MEDS: DOCUSATE SODIUM 100 MG (COLACE) CAP PO SCH ×2 (08:41→20:48)
[2022-03-07] MEDS: FERROUS SULF 325 MG (IRON) TAB PO SCH (08:41)
[2022-03-07] MEDS: PRENATAL VITAMIN 1 EA TAB PO SCH (08:41)
--- NOTE | 2022-03-07 08:41 | Postpartum Progress Note ---
Note Note Day # 1 Subjective: Patient is without complaints. Ambulating, voiding. Tolerating a regular diet without nausea or vomiting. Normal lochia. Pain is well controlled with oral pain medications. Objective: Physical Exam: General - Alert and oriented, no apparent distress Abdomen - Soft, appropriately tender to palpation, non-distended, fundus firm at umbilicus Extremities - no edema, negative Noy's bilaterally Assessment: PPD 1 NVD Acute blood loss anema Plan: Routine care. Replace iron Encourage breast feeding. Encourage ambulation. Ferrous sulfate supplementation. Plan for discharge today Vitals - Labs Vital Signs - I&O Vital Signs Date Time Temp Pulse Resp B/P (MAP) Pulse Ox O2 Delivery O2 Flow Rate FiO2 03/07/22 04:00 36.3 77 18 120/68 (85) 98 Room Air 03/06/22 23:05 36.6 88 18 125/82 (96) 98 Room Air 03/06/22 20:00 37.1 105 18 144/91 (108) 98 Room Air 03/06/22 17:11 36.8 107 18 143/65 (91) 95 Room Air 03/06/22 16:55 81 18 140/79 (99) 94 Room Air 03/06/22 16:40 81 18 138/81 (100) 95 Room Air 03/06/22 16:25 76 18 143/80 (101) 99 Room Air 03/06/22 16:15 88 18 140/84 (102) 98 Room Air 03/06/22 15:58 36.3 90 18 138/87 (104) Room Air 03/06/22 15:40 77 18 137/81 (99) Room Air 03/06/22 15:31 36.0 86 18 136/89 (105) Room Air 03/06/22 15:14 132/79 (96) 03/06/22 15:10 36.0 90 18 127/74 (91) Room Air 03/06/22 15:00 36.1 03/06/22 14:55 90 18 131/73 (92) Room Air 03/06/22 14:41 94 18 121/62 (81) Room Air 03/06/22 14:27 93 18 129/81 (97) Room Air 03/06/22 14:11 97 18 125/83 (97) Room Air 03/06/22 13:56 36.2 87 18 127/84 (98) Room Air 03/06/22 13:42 80 18 133/80 (97) Room Air 03/06/22 13:27 84 18 132/78 (96) Room Air 03/06/22 13:22 35.5 03/06/22 13:10 96 18 135/72 (93) Room Air 03/06/22 12:58 94 18 133/76 (95) 97 Room Air 03/06/22 12:41 95 18 104/64 (77) 97 Room Air 03/06/22 12:26 91 18 114/66 (82) 99 Room Air 03/06/22 12:11 89 18 110/57 (74) 98 Room Air 03/06/22 11:56 85 18 116/61 (79) 96 Room Air 03/06/22 11:50 36.1 03/06/22 11:40 82 18 127/62 (83) 99 Room Air 03/06/22 11:26 100 18 138/82 (100) 97 Room Air 03/06/22 11:11 92 18 114/72 (86) 99 Room Air 03/06/22 10:56 85 18 121/74 (90) 92 Room Air 03/06/22 10:37 91 18 116/62 (80) 95 Room Air 03/06/22 10:31 114 18 115/62 (79) 95 Room Air 03/06/22 10:26 100 18 124/69 (87) 96 Room Air 03/06/22 10:21 93 18 126/72 (90) 93 Room Air 03/06/22 10:20 69 18 117/71 (86) Room Air 03/06/22 10:17 69 18 108/60 (76) Room Air 03/06/22 10:16 68 18 100/59 (73) Room Air 03/06/22 10:15 64 18 100/54 (69) Room Air 03/06/22 10:12 78 18 125/59 (81) 97 Room Air 03/06/22 10:07 92 18 138/67 (90) 97 Room Air 03/06/22 10:01 85 18 135/84 (101) 96 Room Air 03/06/22 09:57 84 18 150/96 (114) 97 Room Air 03/06/22 09:45 82 18 132/92 (105) Room Air 03/06/22 09:30 83 18 133/93 (106) Room Air 03/06/22 09:15 82 18 123/69 (87) Room Air 03/06/22 09:00 88 18 140/93 (109) Room Air I & O 03/07/22 06:59 Intake Total 3000 ml Balance 3000 ml Labs Laboratory Tests 03/07/22 05:30: White Blood Count 15.4H, Red Blood Count 3.00L, Hemoglobin 8.7L, Hematocrit 27L, Mean Corpuscular Volume 90, Mean Corpuscular Hemoglobin 29, Mean Corpuscular Hemoglobin Concent 32, Red Cell Distribution Width 14.6H, Platelet Count 261, Mean Platelet Volume 9.6, Immature Granulocyte % (Auto) 1, Neutrophils (%) (Auto) 74, Lymphocytes (%) (Auto) 13, Monocytes (%) (Auto) 9, Eosinophils (%) (Auto) 3, Basophils (%) (Auto) 0, Neutrophils # (Auto) 11.5H, Lymphocytes # (Auto) 2.0, Monocytes # (Auto) 1.3H, Eosinophils # (Auto) 0.5H, Basophils # (Auto) 0.1, Immature Granulocyte # (Auto) 0.1 EUGENE DE LOS SANTOS DO March 07, 2022 08:41
[2022-03-07 08:43] VITALS: BP 149/95
[2022-03-07 10:10] VITALS: BP 146/79
[2022-03-07] MEDS ORDERED: PROMETHAZINE INJ 25 MG/ML (PHENERGAN) AMP IM ONE (11:30)
--- NOTE | 2022-03-07 12:19 | History & Physical-OB ---
OB - Chief Complaint & HPI Date/Time Date of Admission: Date of Admission: March 06, 2022 at 8:38 am Date seen by a Provider: March 06, 2022 Time Seen by a Provider: 07:45 Chief Complaint/History OB-Reason for Admission/Chief: Onset of Labor Hx : 3 Hx Para: 1 Expected Date of Delivery: March 24, 2022 Gestational Age in Weeks: 37 Gestational Age in Days: 3 Other reason for admission: Patient sent over from the office after making change from an AM appointment of 4 cm to 5-6 cm in the afternoon. Admission Nurse Assessment Rev: Yes Allergies and Home Medications Allergies Coded Allergies: No Known Drug Allergies (Unverified , 09/16/21) Patient Home Medication List Home Medication List Reviewed: Yes Benzocaine/Menthol (Dermoplast Pain Relieving [place]) 20 %-0.5 % Aerosol, 56 EA TP UD PRN for PAIN- SEE INSTRUCTIONS Prescribed by: EUGENE DE LOS SANTOS on 03/07/22838 Dibucaine (Dibucaine) 1 % Oint, 0 GM TOP UD PRN for PAIN- SEE INSTRUCTIONS Prescribed by: EUGENE DE LOS SANTOS on 03/07/22 08 Docusate Sodium (Docusate Sodium) 100 Mg Capsule, 100 MG PO BID PRN for CONSTIPATION-1ST LINE Prescribed by: EUGENE DE LOS SANTOS on 03/07/22 08 Doxylamine Succinate (Unisom) 25 Mg Tablet, 25 MG PO HS, (Reported) Entered as Reported by: NIRANJAN MARTINES on 03/06/22 0918 Last Action: New Order Famotidine (Acid Pulley Man (FAMOTIDINE)) 20 Mg Tablet, 40 MG PO HS, (Reported) Entered as Reported by: ARPIT BRICEÑO on 01/28/22 1440 Last Action: Edited Ferrous Sulfate (Ferosul) 325 Mg (65 Mg Iron) Tablet, 325 MG PO DAILY Prescribed by: EUGENE DE LOS SANTOS on 03/07/22 08 Hydrocodone Bit/Acetaminophen (HYDROcodone/APAP 5 MG/325 MG TAB) 1 Tab Tab, 1 EA PO Q4H PRN for PAIN-MODERATE (5-7) Prescribed by: EUGENE DE LOS SANTOS on 03/07/22 08 Ibuprofen (Ibu) 600 Mg Tablet, 600 MG PO Q6HR Prescribed by: EUGENE DE LOS SANTOS on 03/07/22 08 Vit W-Ca,Fe,FA(<1 mg) ( Formula) 1 Each Tablet, 1 EACH PO, (Reported) Entered as Reported by: ARPIT BRICEÑO on 01/28/22 0300 Last Action: Reviewed OB - History Hx of Present Care: Yes Ultrasounds: Normal mid trimester US Obstetrical Complications: None Medical Complications: None Obstetrical History Hx : 3 Hx Para: 1 Patient Past Medical History n/a Social History/Family History Alcohol Use: Denies Use Recreational Drug Use: No 2nd Hand Smoke Exposure: No Immunizations Influenza Vaccine Up-to-Date: Yes; Up-to-Date OB - Admission Exam Physical Exam Vitals: Vital Signs 03/07/22 03/07/22 08:43 10:10 Temp 36.0 Pulse 82 Resp 18 B/P (MAP) 146/79 (101) Pulse Ox 96 O2 Delivery Room Air HEENT: NCAT Heart: Rhythm Normal Lungs: Clear Abdomen: Gravid Extremities: Normal Reflexes: Normal Cervical Dilatation: 6cm Effacement: 75% Station: -1 Membranes: Intact Heart Rate: 130's Accelerations: Accelerations Present Decelerations: No Decelerations Short Term Variability: Present Loom Changeover Operator Variability: Average (6-25) Contractions on Admission: 6-10 Minutes Apart Intensity: Moderate Labs Laboratory Tests Test 03/07/22 05:30 Range/Units White Blood Count 15.4 H 4.3-11.0 10^3/uL Red Blood Count 3.00 L 3.80-5.11 10^6/uL Hemoglobin 8.7 L 11.5-16.0 g/dL Hematocrit 27 L 35-52 % Mean Corpuscular Volume 90 80-99 fL Mean Corpuscular Hemoglobin 29 25-34 pg Mean Corpuscular Hemoglobin Concent 32 32-36 g/dL Red Cell Distribution Width 14.6 H 10.0-14.5 % Platelet Count 261 130-400 10^3/uL Mean Platelet Volume 9.6 9.0-12.2 fL Immature Granulocyte % (Auto) 1 % Neutrophils (%) (Auto) 74 42-75 % Lymphocytes (%) (Auto) 13 12-44 % Monocytes (%) (Auto) 9 0-12 % Eosinophils (%) (Auto) 3 0-10 % Basophils (%) (Auto) 0 0-10 % Neutrophils # (Auto) 11.5 H 1.8-7.8 10^3/uL Lymphocytes # (Auto) 2.0 1.0-4.0 10^3/uL Monocytes # (Auto) 1.3 H 0.0-1.0 10^3/uL Eosinophils # (Auto) 0.5 H 0.0-0.3 10^3/uL Basophils # (Auto) 0.1 0.0-0.1 10^3/uL Immature Granulocyte # (Auto) 0.1 0.0-0.1 10^3/uL OB - Assessment/Plan/Diagnosis Assessment Assessment: active labor Admission Dx 37 yo @ 37.2 weeks gestation Active labor Advanced cervical dilatation. GBS neg Admission Status: Inpatient Order (span 2 midnights) Reason for Inpatient Admission: 37 week IUP in active labor Plan Plan: Other Other Plan Dysfunctional uterine contraction noted, AROM and Pitocin labor augmentation implemented after admission. EUGENE DE LOS SANTOS DO March 07, 2022 12:19 pm
--- NOTE | 2022-03-07 12:55 | Anesthesia-Regional Post-Op ---
Regional Patient Condition Mental Status: Alert, Oriented x3 Circulation: Same as Pre-Op Headache: Absent Sensation: Full Recovery Motor Block: Absent Post Op Complications Complications None Follow Up Care/Instructions Patient Instructions None needed. Anesthesia/Patient Condition Patient is doing well, mentioned small area of numbness on right thigh, no weakness and no difficulty with ambulation. I told her this should resolve with time but to call with any questions or concerns. She had stable vital signs, no apparent adverse anesthesia problems. JESSICA MALCOLM DO March 07, 2022 12:55
[2022-03-07 14:44] VITALS: BP 137/77
[2022-03-07 20:48] VITALS: BP 133/73
[2022-03-08 04:13] VITALS: BP 140/82
[2022-03-08] MEDS: HYDROcodone/APAP 5 MG/325 MG (LORTAB) TAB PO PRN (04:13)
[2022-03-08] MEDS: IBUPROFEN 600 MG (MOTRIN) TAB PO SCH ×2 (04:13→10:22)
[2022-03-08 09:15] VITALS: BP 142/76
--- NOTE | 2022-03-08 09:51 | Postpartum Progress Note ---
Note Note Day # 2 Subjective: Patient is without complaints. Ambulating, voiding. Tolerating a regular diet without nausea or vomiting. Normal lochia. Pain is well controlled with oral pain medications. Physical Exam: General - Alert and oriented, no apparent distress Abdomen - Soft, appropriately tender to palpation, non-distended, fundus firm at umbilicus Extremities - no edema, negative Noy's bilaterally Assessment: Post- day # 2, status post vaginal delivery. Recovering well, hemodynamically stable Acute blood loss anemia Plan: Routine care. Encourage breast feeding. Encourage ambulation. Ferrous sulfate supplementation. Plan for discharge today Vitals - Labs Vital Signs - I&O Vital Signs Date Time Temp Pulse Resp B/P (MAP) Pulse Ox O2 Delivery O2 Flow Rate FiO2 03/08/22 04:13 36.3 83 18 140/82 (101) 96 Room Air 03/07/22 20:48 36.5 85 18 133/73 (93) 96 Room Air 03/07/22 14:44 36.3 83 18 137/77 (97) Room Air 03/07/22 10:10 82 18 146/79 (101) 96 Room Air PONCHO GEORGE [employer] March 08, 2022 09:51
[2022-03-08] MEDS: FERROUS SULF 325 MG (IRON) TAB PO SCH (10:22)
[2022-03-08] MEDS: DOCUSATE SODIUM 100 MG (COLACE) CAP PO SCH (10:22)
[2022-03-08] MEDS: PRENATAL VITAMIN 1 EA TAB PO SCH (10:22)
[2022-03-08 13:10] VITALS: BP 142/76
== END 2022-03-08 13:10 | disposition home or self-care (01) | DRG 806 ==
LOC: LDRP 12:48 → WSo 12:48 → LDRP 03-06 08:38
PROVIDERS: ADMIT Obstetrics & Gynecology; ATTEND Obstetrics & Gynecology
PROC: 10E0XZZ Delivery of Products of Conception, External Approach (ICD-10-PCS; principal; 2022-03-06)
PROC: 10907ZC Drainage of Amniotic Fluid, Therapeutic from Products of Conception, Via Natural or Artificial Opening (ICD-10-PCS; 2022-03-06)
PROC: 0HQ9XZZ Repair Perineum Skin, External Approach (ICD-10-PCS; 2022-03-06)
DX: O99.824 Streptococcus B carrier state complicating childbirth (principal); D62 Acute posthemorrhagic anemia; Z37.0 Single live birth; Z3A.39 39 weeks gestation of pregnancy; O69.81X0 Labor and delivery complicated by cord around neck, without compression, not applicable or unspecified; O70.0 First degree perineal laceration during delivery; O90.81 Anemia of the puerperium
CPT/HCPCS: 36415; 81000; 82570; 84156; 85007; 85025; 85027; 86850; 86900; 86901; 99212